=== PATIENT | female | born 1940 | race Caucasian/White ===

== ENCOUNTER 2022-02-26 12:13 | Inpatient (IN) | payer MEDICARE, BC ==
[~2022-02-26] VITALS: Ht 165.1 cm; Wt 47.6 kg
--- NOTE | 2022-02-26 12:20 | NUR ---
BIB [facility] from [facility] for agitation, medical clearance and possible admission to MHU. Pt to room 3 via EMT ximena. No report was received from sending facility, per EMT report facility staff stated pt has been agitated and yelling out loud.
[2022-02-26] MEDS ORDERED: diphenhydrAMINE 50 MG/1 ML VIAL IM ONE (12:30)
[2022-02-26] MEDS ORDERED: HALOPERIDOL LACTATE 5 MG/1 ML VIAL IM ONE (12:30)
[2022-02-26 12:38] LABS: HEMATOCRIT 34.5 % (31.2-41.9); MEAN CORPUSCULAR HEMOGLOBIN 29.8 uug (24.7-32.8); MEAN CORPUSCULAR VOLUME 89.6 fL (75.5-95.3); PLATELET COUNT (AUTO) 278 K/uL (179-408)
[2022-02-26 12:54] LABS: ETHANOL < 3 MG/DL (0-0)
[2022-02-26 12:57] LABS: ACETAMINOPHEN < 2.0 ug/mL (10-30)
[2022-02-26 13:02] LABS: CARBON DIOXIDE 30 mmol/L (21-32); CHLORIDE 102 mmol/L (98-107); GLUCOSE 104 mg/dL (74-106); POTASSIUM 4.8 mmol/L (3.5-5.1); UREA NITROGEN, BLOOD 13 mg/dL (7-18)
[2022-02-26 13:08] LABS: ALANINE AMINOTRANSFERASE 14 U/L (14-59); ALKALINE PHOSPHATASE 77 U/L (50-136); ASPARTATE AMINOTRANSFERASE 22 U/L (15-37); BILIRUBIN,DIRECT < 0.1 mg/dL (0.0-0.2); BILIRUBIN,TOTAL 0.2 mg/dL (0.2-1.0); TOTAL PROTEIN, SERUM 6.5 g/dL (6.4-8.2)
[2022-02-26 13:13] LABS: *BILIRUBIN,URIN NEGATIVE (NEGATIVE); *BLOOD, URINE NEGATIVE (NEGATIVE); *CLARITY,URINE CLEAR (CLEAR); *COLOR,URINE YELLOW (YELLOW); *KETONES,URINE NEGATIVE (NEGATIVE); *UROBILINOGEN,URINE 0.2 E.U./dl (NORMAL); LEUKOCYTE ESTERASE ,URINE 1+ (NEGATIVE); NITRITE, URINE NEGATIVE (NEGATIVE); UGLUCOSE NEGATIVE (NEGATIVE)
[2022-02-26 13:48] LABS: *AMPHETAMINE, URINE NEGATIVE (NEGATIVE); *CANNABINOID, URINE POSITIVE (NEGATIVE); *COCCAINE, URINE NEGATIVE (NEGATIVE); *OPIATE, URINE NEGATIVE (NEGATIVE); *PHENCYCLIDINE SCREEN,URINE NEGATIVE (NEGATIVE)
[2022-02-26] MEDS ORDERED: CEphaleXIN 500 MG CAPSULE PO ONE (14:30)
--- NOTE | 2022-02-26 15:00 | NUR ---
Pt resting in [facility] and reading a newspaper with NAD noted at this time.
--- NOTE | 2022-02-26 15:30 | NUR ---
Dung Betancourt, DIRECTOR OF ACQUISITION MARKETING at bedside.
[2022-02-26] MEDS ORDERED: CEphaleXIN 500 MG CAPSULE ONE (15:43)
--- NOTE | 2022-02-26 16:00 | NUR ---
SBAR report given to LENIN Araujo in [place].
--- NOTE | 2022-02-26 16:40 | NUR ---
Pt trans to MHU, NAD noted.
[2022-02-26] MEDS ORDERED: MELA5TAB MT (16:47)
[2022-02-26] MEDS ORDERED: BENA10TA74 MT (16:47)
[2022-02-26] MEDS ORDERED: ALEN10TA26 MT (16:47)
[2022-02-26] MEDS ORDERED: SERT-439 MT (16:47)
[2022-02-26] MEDS ORDERED: BISA-79 MT (16:47)
[2022-02-26] MEDS ORDERED: AMLO-212 MT (16:47)
[2022-02-26] MEDS ORDERED: POLY17PO4 MT (16:47)
[2022-02-26] MEDS ORDERED: CHOL200059 MT (16:47)
[2022-02-26] MEDS ORDERED: MEMA5TAB42 MT (16:47)
[2022-02-26] MEDS ORDERED: TRAZ-252 MT (16:47)
[2022-02-26] MEDS ORDERED: GABA-532 PO (16:47)
[2022-02-26] MEDS ORDERED: ATORVASTATIN PO (16:47)
[2022-02-26] MEDS ORDERED: BISA10SU61 RC (16:47)
[2022-02-26 17:00] VITALS: BP 104/50
[2022-02-26] MEDS ORDERED: ZOLPIDEM 5 MG TABLET PO PRN (17:30)
[2022-02-26] MEDS ORDERED: MAG HYDROX/AL HYDROX/SIMETH 30 ML LIQUID UDC PO PRN (17:30)
[2022-02-26] MEDS ORDERED: MAGNESIUM HYDROXIDE 30 ML LIQUID UDC PO PRN (17:30)
--- NOTE | 2022-02-26 18:24 | NUR ---
Intake called to changed psychiatrist from Dr. Luque to Dr. Chi x 3 times
--- NOTE | 2022-02-26 18:29 | NUR ---
Patient present to Emergency Department via EMS from [facility]. Patient was transferred for treatment due to noncompliance, persistent agitation, and confusion. Patient is oriented to self, confused, demonstrates disorganized thought process, impaired judgement, and poor insight and impulse control. Symmetrical and nonlabored breathing noted. Patient complains of frequent urinary urges. No complaints of pain at this time. Safety measures in place.
[2022-02-26 18:46] LABS: BACTERIA,URINE FEW /HPF (NONE SEEN); RBC,URINE 0-3 /HPF (0-3); SQUAMOUS EPITHELIAL CELL,UR NONE SEEN /HPF (NONE SEEN)
[2022-02-26 18:47] LABS: URINE AMORPHOUS PHOSPHATES MODERATE /HPF
[2022-02-26] MEDS ORDERED: OLANZAPINE 10 MG VIAL IM ONE (19:30)
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
[2022-02-26 19:56] VITALS: BP 107/51
--- NOTE | 2022-02-26 21:01 | NUR ---
GPS: Pt.is calm and cooperative at this time. No longer yelling/agitated and verbally abusive. Requesting to have a sleeping pill to help her sleep. Ambien 5mg given PO. Safe environment provided. Bed alarm on for safety. Ate some snacks prior to getting in bed.
--- NOTE | 2022-02-26 21:28 | NUR ---
GPS: Gabrielle RUVALCABA was notified to have med.recon done.
--- NOTE | 2022-02-27 06:21 | NUR ---
GPS: Pt.slept 5.45 last night. Had episode of shouting profanities earlier during incontinence care. Approached by staff in a calm manner to gain cooperation. No striking-out behavior noted. Fall precautions observed. Will continue to monitor.
[2022-02-27 07:43] VITALS: BP 96/60
[2022-02-27 08:00] VITALS: BP 109/66
[2022-02-27] MEDS: CEphaleXIN 500 MG CAPSULE PO SCH ×3 (09:26→21:42)
[2022-02-27] MEDS: LORAZEPAM 1 MG TABLET PO PRN ×3 (09:34→20:19)
--- NOTE | 2022-02-27 09:35 | NUR ---
patient is anxious, screaming loud abusive behavior noted toward staff. ativan 1 mg po prn given for out of control behavior. assisted in gerichair near the nursing station for safety. continue plan of care.
[2022-02-27 10:13] LABS: POTASSIUM 4.8 mmol/L (3.5-5.1)
--- NOTE | 2022-02-27 10:35 | NUR ---
patient is calm now. prn for anxiety effective.
[2022-02-27] MEDS ORDERED: BISACODYL 10 MG SUPP.RECT RC PRN (11:45)
[2022-02-27] MEDS ORDERED: LATA2.5D15 EACHEYE (12:09)
[2022-02-27] MEDS ORDERED: DONE5TAB34 PO (12:17)
[2022-02-27 16:31] VITALS: BP 137/58
--- NOTE | 2022-02-27 18:36 | NUR ---
Remain uncooperative and hyper verbal toward staff. assisted with adl's. continue plan of care..
[2022-02-27 20:00] VITALS: BP 104/52
[2022-02-27] MEDS: LATANOPROST OPHT DROP 2.5 ML BOTTLE OP SCH (20:12)
[2022-02-27] MEDS ORDERED: GABAPENTIN 100 MG CAPSULE PO SCH (21:00)
[2022-02-27] MEDS ORDERED: OLANZAPINE ZYDIS 5 MG TAB.RAPDIS PO SCH ×2 (21:00)
--- NOTE | 2022-02-27 22:00 | NUR ---
RECEIVED PATIENT IN THE HALLWAY SITTIN IN A MENDEL CHAIR. SHE WAS NOTED AWAKE A/O X 2. SHE WAS NOTED HYPERVERBAL AND RESTLESS BUT SHE IS SOMEWHAT REDIRECTABLE. PATIENT STATED, "I DON'T WANT TO BE HERE, THIS IS A HORRIBLE PLACE. I DON'T WANT TO GO TO [place] EITHER". NO AGGRESSIVE OR COMBATIVE BX NOTED AT THIS TIME. PATIENT WAS GIVEN ATIVAN 1MG PO PRN FOR AGITATION. SHE WAS ALSO COMPLIANT WITH ALL HER QHS MEDICATION REGIMENT WELL HER KEFLEX FOR UTI. PATIENT IS REASSURED FOR HER SAFETY. SAFETY AND FALL PRECAUTIONS ARE IN PLACE. SHE WAS GIVEN PO FLUIDS AND SNACKS. ALL HER NEEDS WERE MET (ADLs RESTROOM ETC.) WILL CONTINUE TO MONITOR,
[2022-02-28] MEDS: TEMAZEPAM 7.5 MG CAPSULE PO PRN ×2 (01:19→22:45)
[2022-02-28] MEDS: CEphaleXIN 500 MG CAPSULE PO SCH ×3 (06:39→21:07)
[2022-02-28 08:21] VITALS: BP 110/54
[2022-02-28] MEDS: GLUCERNA SHAKE 237 ML CAN PO SCH (08:21)
[2022-02-28] MEDS: MIRALAX 17 GM POWD.PACK NG SCH (08:21)
[2022-02-28 16:10] VITALS: BP 100/49
[2022-02-28] MEDS: OLANZAPINE ZYDIS 5 MG TAB.RAPDIS PO SCH ×2 (17:06→20:56)
[2022-02-28 19:55] VITALS: BP 132/50
--- NOTE | 2022-02-28 20:57 | NUR ---
Held BID scheduled 2100 medication d/t registry nurse given at 1700. Medication was previously ordered for 0900 and 1700, but now scheduled for 0900 and 2100 starting 02/28/22. Called [facility] to confirm orders. New frequency is x1 2.5mg tablet at 0900 and 2100 hours.
[2022-02-28] MEDS: GABAPENTIN 300 MG CAPSULE PO SCH (21:07)
[2022-02-28] MEDS: LATANOPROST OPHT DROP 2.5 ML BOTTLE OP SCH (21:08)
[2022-02-28] MEDS: LORAZEPAM 1 MG TABLET PO PRN (22:45)
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
[2022-03-01] MEDS: CEphaleXIN 500 MG CAPSULE PO SCH ×3 (06:20→20:22)
[2022-03-01] MEDS: OLANZAPINE ZYDIS 5 MG TAB.RAPDIS PO SCH (08:47)
[2022-03-01] MEDS: MIRALAX 17 GM POWD.PACK NG SCH (08:47)
[2022-03-01] MEDS: GLUCERNA SHAKE 237 ML CAN PO SCH (08:48)
[2022-03-01 09:02] VITALS: BP 104/60
--- NOTE | 2022-03-01 10:36 | NUR ---
JONY Initial Discharge Note: Pt currently resides at [facility] [address] [address] ([phone]). JONY spoke with Vivienne from [facility] regarding pt's return upon discharge. JONY will contact pt's , Bassam ([phone]) to discuss pt's discharge plan. JONY will continue to work with pt, family and MD to ensure a safe and proper discharge plan.
[2022-03-01] MEDS: DIVALPROEX SPRINKLE 125 MG CAP.SPRINK PO SCH ×2 (12:15→20:22)
--- NOTE | 2022-03-01 14:11 | NUR ---
Clinical SW Note: SW spoke with pt's psychologist, Dr. Small ([phone]). SW stated to Dr. Small that this senior technical writer will contact him prior to pt's discharge to schedule a follow-up appt for the pt's continuation of care. Dr. Small was grateful.
--- NOTE | 2022-03-01 14:55 | NUR ---
GPS: Nursing Notes: Thought Disorder: Patient is awake and responding to her name, impaired judgment, A/Ox1, poor insight, gets easily irritable when redirected, poor anger management, refusing to participate in therapeutic groups, refusing to eat her lunch, episodes of talking incoherently, loud and pressured speech at times, resistant with nursing care, unable to formulate a viable plan for self care, continue to monitor for safety, continue with treatment plan.
--- NOTE | 2022-03-01 15:24 | NUR ---
Firearms Report: Textile Engineer completed and submitted a [employer] firearms report for 5150 grave disability certifications. A copy of report has been placed in patient chart.
--- NOTE | 2022-03-01 15:54 | NUR ---
JONY Family contact: JONY contacted pt's , Bassam ([phone]) and it appears the number is invalid. JONY will continue to follow-up with Brooks for updated contact information.
[2022-03-01 16:11] VITALS: BP 99/64
[2022-03-01] MEDS: LORAZEPAM 1 MG TABLET PO PRN ×2 (16:27→20:22)
[2022-03-01 19:36] VITALS: BP 104/59
[2022-03-01] MEDS: GABAPENTIN 300 MG CAPSULE PO SCH (20:21)
[2022-03-01] MEDS ORDERED: OLANZAPINE ZYDIS 5 MG TAB.RAPDIS PO SCH (21:00)
[2022-03-01] MEDS: LATANOPROST OPHT DROP 2.5 ML BOTTLE OP SCH (21:48)
[2022-03-01] MEDS: ACETAMINOPHEN 325 MG TABLET PO PRN (22:26)
[2022-03-01] MEDS: TEMAZEPAM 7.5 MG CAPSULE PO PRN (22:26)
[2022-03-02] MEDS: CEphaleXIN 500 MG CAPSULE PO SCH ×3 (06:26→21:09)
[2022-03-02 07:45] VITALS: BP 113/65
[2022-03-02] MEDS: MIRALAX 17 GM POWD.PACK NG SCH (08:49)
[2022-03-02] MEDS: DIVALPROEX SPRINKLE 125 MG CAP.SPRINK PO SCH ×2 (08:49→21:09)
[2022-03-02] MEDS: GLUCERNA SHAKE 237 ML CAN PO SCH (08:50)
[2022-03-02] MEDS: LORAZEPAM 1 MG TABLET PO PRN ×2 (12:25→20:58)
[2022-03-02 15:08] VITALS: BP 113/61
--- NOTE | 2022-03-02 16:07 | NUR ---
GPS: Nursing Notes: Thought Disorder: Patient is awake and responding to her name, isolative and withdrawn in her room, poor anger management, depressed mood and anger affect, gets easily irritable when redirected, assisted with ADL's, but resistant with nursing care, loud and pressured speech at times, redirected during shift, unable to formulate a viable plan for self care, continue to monitor for safety, continue with treatment plan.
[2022-03-02 19:38] VITALS: BP 116/56
[2022-03-02] MEDS: ATORVASTATIN 10 MG TABLET PO SCH ×2 (20:57→21:09)
[2022-03-02] MEDS: LATANOPROST OPHT DROP 2.5 ML BOTTLE OP SCH (21:00)
[2022-03-02] MEDS: GABAPENTIN 300 MG CAPSULE PO SCH (21:08)
[2022-03-02] MEDS: OLANZAPINE ZYDIS 5 MG TAB.RAPDIS PO SCH (21:09)
[2022-03-02] MEDS: TEMAZEPAM 7.5 MG CAPSULE PO PRN (21:20)
[2022-03-03] MEDS: CEphaleXIN 500 MG CAPSULE PO SCH ×3 (06:13→21:37)
[2022-03-03 07:30] VITALS: BP 96/72
[2022-03-03] MEDS: GLUCERNA SHAKE 237 ML CAN PO SCH (09:00)
[2022-03-03] MEDS: DIVALPROEX SPRINKLE 125 MG CAP.SPRINK PO SCH ×3 (09:02→17:20)
[2022-03-03] MEDS: MIRALAX 17 GM POWD.PACK NG SCH (09:02)
[2022-03-03] MEDS: LORAZEPAM 1 MG TABLET PO PRN ×3 (09:04→23:30)
[2022-03-03 16:00] VITALS: BP 125/76
--- NOTE | 2022-03-03 16:37 | NUR ---
Patient had court hearing today, pole peeler gave 14 Day hold probable cause for GD and DTS.
[2022-03-03 20:27] VITALS: BP 127/87
--- NOTE | 2022-03-03 20:30 | NUR ---
RECEIVED PATIENT IN THE DAY ROOM SITTING IN A MENDEL CHAIR READING SOME MAGAZINES. SHE IS NOTED A/O X 2 ABLE TO VERBALIZED HER FEELINGS. SHE IS CALM AND PLEASANT UPON APPROACHED. SHE IS EXPRESSING THAT SHE WANTS TO GO BACK TO [place] SHE FEELS SHE IS BETTER THERE THAN HERE. SHE STATED, "I HAVE TO LEAVE THIS PLACE BY TOMORROW. I DON'T LIKE [place] BUT [place] IS BETTER THAN HERE, BECAUSE I HAVE A TV IN MY ROOM AND THE FOOD IS SERVED WITH REAL PLATES NOT FAKE". PATIENT NOTED WITH POOR INSIGHT AND JUDGMENT TO THE REASON FOR HER ADMISSION TO MHU. SHE WAS GIVEN PO FLUIDS AND SNACKS. PT IS REASSURED FOR HER SAFETY. SAFETY AND FALL PRECAUTIONS ARE IN PLACE. V/S STABLE. WILL CONTINUE TO MONITOR.
[2022-03-03] MEDS: LATANOPROST OPHT DROP 2.5 ML BOTTLE OP SCH (21:00)
[2022-03-03] MEDS: GABAPENTIN 300 MG CAPSULE PO SCH (21:25)
[2022-03-03] MEDS: OLANZAPINE ZYDIS 5 MG TAB.RAPDIS PO SCH (21:25)
[2022-03-03] MEDS: ATORVASTATIN 10 MG TABLET PO SCH (21:26)
[2022-03-03] MEDS: TEMAZEPAM 7.5 MG CAPSULE PO PRN (22:03)
--- NOTE | 2022-03-03 23:30 | NUR ---
THE BED ALARM WAS HEARD. THIS LAST CHALKER ENTERED PATIENT'S ROOM. PATIENT WAS NOTED UPSET. SHE STATED, "WHAT IS THAT NOISE. I HATE THIS PLACE. I NEED TO FO TO THE BATHROOM BUT THIS PLACE IS HORRIBLE". PATIENT WAS TOLD THAT THE BED ALARM IS FOR HER SAFETY SHE IS UNSTEADY ON HER FEET. HOWEVER, SHE CONTINUE YELLING. "I WANT TO GET OUT OF HERE SOON. I RATHER GO TO [place] THAN HERE. WHAT KIND OF PLACE IS THIS WITH THAT NOISE". SHE WAS HELPED TO THE RESTROOM AND BACK TO BED. ATIVAB 1MG PO PRN WAS GIVEN FOR AGITATION. WILL CONTINUE TO MONITOR
--- NOTE | 2022-03-04 00:30 | NUR ---
PATIENT NOTED SLEEPING COMFORTABLY IN HER BED. WILL CONTINUE TO MONITOR FOR LABILE BEHAVIOR.
[2022-03-04] MEDS: CEphaleXIN 500 MG CAPSULE PO SCH (06:43)
[2022-03-04 07:30] VITALS: BP 108/58
[2022-03-04] MEDS: DIVALPROEX SPRINKLE 125 MG CAP.SPRINK PO SCH ×3 (09:11→17:46)
[2022-03-04] MEDS: MIRALAX 17 GM POWD.PACK NG SCH (09:12)
[2022-03-04] MEDS: GLUCERNA SHAKE 237 ML CAN PO SCH (09:12)
[2022-03-04] MEDS: ENSURE ENLIVE (VAN) 240 ML LIQUID PO SCH ×3 (11:12→17:46)
[2022-03-04 16:00] VITALS: BP 100/54
--- NOTE | 2022-03-04 16:47 | NUR ---
SHIFT NOTE: GPS: NURSING NOTE: THOUGHT DISORDER RECEIVED PT ALERT AND ORIENTED X2 PT RESPONDS WHEN MEDICATION IS GIVEN LYING IN BED NO SIGNS OF DISTRESS NOTED. PT DENIES PAIN AND ABLE TO ANSWER APPROPRIATELY WHEN ASKED. WILL CONTINUE TO MONITOR FOR SAFETY AND ENDORSE TO PM NURSE.
[2022-03-04 20:48] VITALS: BP 100/54
[2022-03-04] MEDS: LATANOPROST OPHT DROP 2.5 ML BOTTLE OP SCH (21:00)
[2022-03-04] MEDS: GABAPENTIN 300 MG CAPSULE PO SCH (21:59)
[2022-03-04] MEDS: ATORVASTATIN 10 MG TABLET PO SCH (21:59)
[2022-03-04] MEDS: OLANZAPINE ZYDIS 5 MG TAB.RAPDIS PO SCH (21:59)
[2022-03-05 07:30] VITALS: BP 100/58
[2022-03-05] MEDS: DIVALPROEX SPRINKLE 125 MG CAP.SPRINK PO SCH ×3 (09:03→16:47)
[2022-03-05] MEDS: MIRALAX 17 GM POWD.PACK NG SCH (09:03)
[2022-03-05] MEDS: ENSURE ENLIVE (VAN) 240 ML LIQUID PO SCH ×3 (09:03→16:47)
--- NOTE | 2022-03-05 15:52 | NUR ---
Patient was found on the floor around 15:00, and stated that she slid from bed to the floor. Vital signs within normal limits, skin intact. Incident report completed, her Bassam [phone] was notified, and Hand Stamper was informed. Fall and safety precautions implemented.
[2022-03-05 16:00] VITALS: BP 98/53
--- NOTE | 2022-03-05 16:08 | NUR ---
JONY Family Contact: JONY spoke with pt's /DPOA, Bassam ([phone]) regarding pt's current status and discharge plan. JONY stated pt does not have an anticipated discharge date yet to return to [facility]. Bassam was grateful for the update and stated he will visit the pt during evening visitation.
--- NOTE | 2022-03-05 16:49 | NUR ---
No further orders from Word Processor related to Fall Incident Report.
--- NOTE | 2022-03-05 17:59 | NUR ---
SHIFT NOTE: RECEIVED REPORT FROM AM NURSE ROGER. ENTERED PT ROOM SHE IS ASLEEP NO SIGNS OF DISTRESS NOTED. BUT AT 1520 CHECKING ON PATIENT IN ROOM 145CA Addendum: 03/05/22 at 1821 by [facility] INPATIENT RN1 RN THE CA CAME INTO THE ROOM TOLD NURSE PATIENT ON THE FLOOR NO SIGNS OF DISTRESS NOTED. PATIENT STATES" PUT LIGHT ON NO ONE ANSWER TRYING TO GO TO THE BATHROOM AND SLID DOWN ON THE FLOOR NO SIGNS OF DISTRESS NOTED. ASSESSED PT BODY NO BRUISE OR CUTS. TOOK PATIENT TO TOILET WHERE SHE WAS CLEANED AND PUT ON CLEAN DRY GOWN PANTS ALONG WITH NEW SOCKS PATIENT LINEN CHANGED AND FIELD MERCHANDISER,DR MO, ALONG PATIENT WHO CAME TO VISIT PATIENT. PT TOOK MEDICATION ORDERED. DURING PATIENT CRYING WANTING TO . TALKED WITH PATIENT ABOUT SUICIDAL SPEECH AFTERWARDS PATIENT PUT IN GERIATRIC CHAIR AND MOVED CLOSE TO NURSING STATION. WILL CONTINUE TO MONITOR SAFETY AND FALLS. DR. MO CALLED STATES" NO NEW ORDERS."
[2022-03-05 20:14] VITALS: BP 114/62
[2022-03-05] MEDS: GABAPENTIN 300 MG CAPSULE PO SCH (20:29)
[2022-03-05] MEDS: ATORVASTATIN 10 MG TABLET PO SCH (20:29)
[2022-03-05] MEDS: OLANZAPINE ZYDIS 5 MG TAB.RAPDIS PO SCH (20:30)
[2022-03-05] MEDS: LATANOPROST OPHT DROP 2.5 ML BOTTLE OP SCH (20:31)
[2022-03-05] MEDS: TEMAZEPAM 7.5 MG CAPSULE PO PRN (21:30)
[2022-03-06] MEDS: LORAZEPAM 1 MG TABLET PO PRN ×3 (00:12→13:25)
--- NOTE | 2022-03-06 00:12 | NUR ---
patient c/o anxiety. ativan 1 mg po prn given for anxiety.
--- NOTE | 2022-03-06 01:12 | NUR ---
GPS: Patient is calm and resting in bed quietly. prn for anxiety effective.
--- NOTE | 2022-03-06 06:16 | NUR ---
GPS: patient remained angry toward staff. showered this morning. compliant with meds. assisted with adl's. patient ambulate with assist. slept 4.45 hrs after Restoril po prn given. resting in bed comfortably. continue plan of care.
[2022-03-06 08:01] VITALS: BP 122/82
[2022-03-06] MEDS: DIVALPROEX SPRINKLE 125 MG CAP.SPRINK PO SCH ×3 (08:40→16:19)
[2022-03-06] MEDS: MIRALAX 17 GM POWD.PACK NG SCH (08:40)
[2022-03-06] MEDS: ENSURE ENLIVE (VAN) 240 ML LIQUID PO SCH ×3 (08:45→16:19)
--- NOTE | 2022-03-06 13:34 | NUR ---
GPS: Nursing Notes: Thought Disorder: Patient is awake and responding to her name, impaired judgment, gets easily irritable when redirected, poor anger management, resistant with nursing care, disoriented, poor insight, unable to formulate a viable plan for self care, using profanities toward staff at times, redirected and reoriented during shift, unkempt appearance, poor grooming, continue to monitor for safety, depressed mood and angry affect, continue with treatment plan.
[2022-03-06 16:21] VITALS: BP 94/52
[2022-03-06 20:00] VITALS: BP 104/64
[2022-03-06] MEDS: GABAPENTIN 300 MG CAPSULE PO SCH (20:33)
[2022-03-06] MEDS: ATORVASTATIN 10 MG TABLET PO SCH (20:33)
[2022-03-06] MEDS: OLANZAPINE ZYDIS 5 MG TAB.RAPDIS PO SCH (20:33)
[2022-03-06] MEDS: LATANOPROST OPHT DROP 2.5 ML BOTTLE OP SCH (21:00)
--- NOTE | 2022-03-06 21:00 | NUR ---
RECEIVED PATIENT IN HER ROOM IN BED. SHE IS NOTED SLEEPING BUT EASILY AROUSABLE. SHE IS A/O X 1 TO 2 BUT SHE IS FORGETFUL TIMES. SHE IS CALM AND PLEASANT UPON APPROACHED. SHE STATED, "I AM FEELING OK I GUESS, BUT I AM HUNGRY AND I NEED ANOTHER PILLOW FOR MY HEAD AND ANOTHER BLANKET". PATIENT IS REASSURED FOR HER SAFETY. SAFETY AND FALL PRECAUTIONS ARE IN PLACE. HER V/S ARE STABLE. SHE WAS GIVEN PO FLUIDS AND SNACKS. ALL HER NEEDS ARE MET. WILL CONTINUE TO MONITOR.
[2022-03-07 07:53] VITALS: BP 114/63
[2022-03-07] MEDS: DIVALPROEX SPRINKLE 125 MG CAP.SPRINK PO SCH ×3 (08:34→16:19)
[2022-03-07] MEDS: MIRALAX 17 GM POWD.PACK NG SCH (08:34)
[2022-03-07] MEDS: ENSURE ENLIVE (VAN) 240 ML LIQUID PO SCH ×3 (08:35→16:20)
--- NOTE | 2022-03-07 11:47 | NUR ---
GPS: Nursing Notes: Thought Disorder: Patient is awake and responding to her name, poor anger management, resistant with nursing care, gets easily irritable when redirected, verbal abusive at times, A/Ox1-2, impaired judgment, poor insight, unable to formulate a viable plan for self care, isolative and withdrawn this AM, low energy level, continue to monitor for safety, continue with treatment plan.
[2022-03-07 16:35] VITALS: BP 108/73
[2022-03-07 19:55] VITALS: BP 132/81
[2022-03-07] MEDS: LORAZEPAM 1 MG TABLET PO PRN (19:55)
[2022-03-07] MEDS: OLANZAPINE ZYDIS 5 MG TAB.RAPDIS PO SCH (20:29)
[2022-03-07] MEDS: ATORVASTATIN 10 MG TABLET PO SCH (20:29)
[2022-03-07] MEDS: GABAPENTIN 300 MG CAPSULE PO SCH (20:29)
--- NOTE | 2022-03-07 20:30 | NUR ---
RECEIVED PATIENT IN HER ROOM IN BED. SHE IS NOTED AWAKE, A/O X 2. SHE IS CRYING ANXIOUS AND FEELING HOPELESS UPON APPROACHED. SHE STATED, "WHEN AM I LEAVING THIS PLACE? I AM USELESS, JUST SITTING HERE DOING NOTHING. I AM TIRED. I DON'T WANT TO GO TO [place], I HATE THAT PLACE". PATIENT WAS REALITY ORIENTED, SHE IS REASSURED FOR HER SAFETY. SHE WAS TOLD IF SHE WANTED TO GO OUTSIDE HER ROOM AND WATCH TV. SHE STATED, "YES". SHE WAS ALSO OFFERED AN ATIVAN 1MG AND SHE SAY "YES". PATIENT WAS THEN TAKEN TO THE BATHROOM THEN TO DAY ROOM THEN ATIVAN 1MG PO PRN WAS GIVEN. SAFETY AND FALL PRECAUTIONS ARE IN PLACE. HER V/S ARE STABLE. SHE WAS GIVEN PO FLUIDS AND SNACKS. ALL HER NEEDS ARE MET. WILL CONTINUE TO MONITOR.
[2022-03-07] MEDS: LATANOPROST OPHT DROP 2.5 ML BOTTLE OP SCH (21:46)
[2022-03-08] MEDS: TEMAZEPAM 7.5 MG CAPSULE PO PRN ×2 (00:58→20:44)
[2022-03-08 08:01] VITALS: BP 99/59
[2022-03-08] MEDS: MIRALAX 17 GM POWD.PACK NG SCH (08:23)
[2022-03-08] MEDS: DIVALPROEX SPRINKLE 125 MG CAP.SPRINK PO SCH ×2 (08:23→12:49)
[2022-03-08] MEDS: ENSURE ENLIVE (VAN) 240 ML LIQUID PO SCH ×3 (08:24→17:13)
[2022-03-08] MEDS: LORAZEPAM 1 MG TABLET PO PRN ×2 (08:38→22:54)
[2022-03-08] MEDS: OLANZAPINE 2.5 MG TABLET PO SCH ×2 (12:49→17:13)
[2022-03-08 16:05] VITALS: BP 117/72
[2022-03-08] MEDS: DIVALPROEX 250 MG TABLET.DR PO SCH (17:13)
--- NOTE | 2022-03-08 17:43 | NUR ---
GPS: Nursing Notes: Thought Disorder: Patient is awake and responding to her name, gets easily irritable when redirected, labile, unpredictable behavior, impaired judgment, poor insight, disoriented, unable to formulate a viable plan for self care, resistant with nursing care, unkempt appearance, continue with treatment plan.
[2022-03-08 19:42] VITALS: BP 112/66
[2022-03-08] MEDS: LATANOPROST OPHT DROP 2.5 ML BOTTLE OP SCH (20:42)
[2022-03-08] MEDS: GABAPENTIN 300 MG CAPSULE PO SCH (20:43)
[2022-03-08] MEDS: OLANZAPINE ZYDIS 5 MG TAB.RAPDIS PO SCH (20:44)
[2022-03-08] MEDS: ATORVASTATIN 10 MG TABLET PO SCH (20:44)
--- NOTE | 2022-03-09 05:49 | NUR ---
GPS NOTES: Patient received in bed, A&0x3, patient is anxious, verbalizing she hasn't move her BM for 3 days. Re-assure patient, patient assisted to restroom, she is unsteady and weak as she is thin and failing to thrive. MOM given as per her request. Effective. Patient had small BM, w/c she is relieved. Ativan also given d/t anxiety. Snacks and fluids provided. Only drinks the juice provided. She is med compliant. Complaint with care. Prn temazepam given. effective. slept well during shift. All safety precautions observed.
[2022-03-09 07:54] LABS: HEMATOCRIT 35.1 % (31.2-41.9); MEAN CORPUSCULAR HEMOGLOBIN 29.3 uug (24.7-32.8); MEAN CORPUSCULAR VOLUME 89.3 fL (75.5-95.3); PLATELET COUNT (AUTO) 396 K/uL (179-408)
[2022-03-09 08:00] VITALS: BP 102/66
[2022-03-09 08:08] LABS: BILIRUBIN,TOTAL 0.2 mg/dL (0.2-1.0); CREATININE 0.8 mg/dL (0.6-1.3); POTASSIUM 4.4 mmol/L (3.5-5.1)
[2022-03-09] MEDS: DIVALPROEX SPRINKLE 125 MG CAP.SPRINK PO SCH ×2 (09:43→12:58)
[2022-03-09] MEDS: OLANZAPINE 2.5 MG TABLET PO SCH ×3 (09:43→17:00)
[2022-03-09] MEDS: MIRALAX 17 GM POWD.PACK NG SCH (09:43)
[2022-03-09] MEDS: ENSURE ENLIVE (VAN) 240 ML LIQUID PO SCH ×3 (09:44→16:59)
[2022-03-09] MEDS: NUTRISOURCE FIBER 4 GM PACKET PO SCH (14:00)
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
[2022-03-09 16:01] VITALS: BP 100/54
[2022-03-09] MEDS: DIVALPROEX 250 MG TABLET.DR PO SCH (16:59)
[2022-03-09 19:54] VITALS: BP 106/62
[2022-03-09] MEDS: GABAPENTIN 300 MG CAPSULE PO SCH (20:50)
[2022-03-09] MEDS: LORAZEPAM 1 MG TABLET PO PRN (20:50)
[2022-03-09] MEDS: ATORVASTATIN 10 MG TABLET PO SCH (20:50)
[2022-03-09] MEDS: OLANZAPINE ZYDIS 5 MG TAB.RAPDIS PO SCH (20:50)
[2022-03-09] MEDS: LATANOPROST OPHT DROP 2.5 ML BOTTLE OP SCH (20:52)
[2022-03-09] MEDS: TEMAZEPAM 7.5 MG CAPSULE PO PRN (21:50)
[2022-03-10] MEDS: ACETAMINOPHEN 325 MG TABLET PO PRN (00:37)
[2022-03-10] MEDS: LORAZEPAM 1 MG TABLET PO PRN (00:37)
[2022-03-10 07:30] VITALS: BP 112/68
[2022-03-10] MEDS: DIVALPROEX SPRINKLE 125 MG CAP.SPRINK PO SCH ×2 (08:00→15:00)
[2022-03-10] MEDS: MIRALAX 17 GM POWD.PACK NG SCH ×2 (09:00→15:01)
[2022-03-10] MEDS: ENSURE ENLIVE (VAN) 240 ML LIQUID PO SCH ×3 (09:00→17:54)
[2022-03-10] MEDS: OLANZAPINE 2.5 MG TABLET PO SCH ×3 (09:00→17:49)
[2022-03-10] MEDS: NUTRISOURCE FIBER 4 GM PACKET PO SCH (09:00)
[2022-03-10 16:00] VITALS: BP 97/57
[2022-03-10] MEDS: DIVALPROEX 250 MG TABLET.DR PO SCH (17:49)
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
[2022-03-10] MEDS: OLANZAPINE ZYDIS 5 MG TAB.RAPDIS PO SCH (20:08)
[2022-03-10] MEDS: GABAPENTIN 300 MG CAPSULE PO SCH (20:08)
[2022-03-10] MEDS: ATORVASTATIN 10 MG TABLET PO SCH (20:08)
[2022-03-10 20:09] VITALS: BP 108/49
--- NOTE | 2022-03-10 20:30 | NUR ---
RECEIVED PATIENT IN THE DAY ROOM SITTING IN A MENDEL CHAIR. SHE IS NOTED A/O X 2. SHE IS NOTED IRRITABLE, "I DON'T UNDERSTAND WHY I AM STILL HERE IN THIS PLACE". PATIENT REQUIRES REALITY REDIRECTIONS AND REALITY ORIENTATION. PATIENT SAFETY AND FALL PRECAUTIONS ARE IN PLACE. HER V/S ARE STABLE. SHE WAS GIVEN PO FLUIDS AND SNACKS. ALL HER NEEDS ARE MET. WILL CONTINUE TO MONITOR.
[2022-03-10] MEDS: LATANOPROST OPHT DROP 2.5 ML BOTTLE OP SCH (20:39)
[2022-03-10] MEDS: TEMAZEPAM 7.5 MG CAPSULE PO PRN (21:28)
[2022-03-11] MEDS: LORAZEPAM 1 MG TABLET PO PRN (01:07)
--- NOTE | 2022-03-11 01:10 | NUR ---
PATIENT NOTED AWAKE. SHE STATED, "I CAN'T SLEEP. THIS BED IS HORRIBLE, DON'T YOU HAVE SOMETHING BETTER? I NEED SOMETHING FOR SLEEP". TEMAZEPAM 7.5MG PO PRN WAS GIVEN EARLIER. PATIENT GETS EASILY IRRITABLE. ATIVAN 1MG PO PRN WAS GIVEN. WILL CONTINUE TO MONITOR.
--- NOTE | 2022-03-11 06:17 | NUR ---
PATIENT SLEPT FOR APPROX 4HRS THROUGH THE NIGHT, SHE IS NOTED LABILE. WILL CONTINUE TO MONITOR.
[2022-03-11 07:30] VITALS: BP 100/58
[2022-03-11] MEDS: OLANZAPINE 2.5 MG TABLET PO SCH ×2 (08:40→17:26)
[2022-03-11] MEDS: MIRALAX 17 GM POWD.PACK PO SCH (08:40)
[2022-03-11] MEDS: DIVALPROEX SPRINKLE 125 MG CAP.SPRINK PO SCH ×2 (08:40→13:05)
[2022-03-11] MEDS: ENSURE ENLIVE (VAN) 240 ML LIQUID PO SCH ×3 (08:40→17:27)
[2022-03-11] MEDS: NUTRISOURCE FIBER 4 GM PACKET PO SCH (08:41)
--- NOTE | 2022-03-11 15:00 | NUR ---
Received patient awake laying in bed, depressed and blunt affect.Patient stays in her room and does not interact with peers or staff.Patient does not attend group activities.Patient has well kept appearance and is compliant with nursing care.Patient is not med compliant,Patient cheeking medication.
--- NOTE | 2022-03-11 15:02 | NUR ---
JONY Family/DPOA Contact: JONY spoke with pt's /DPOA, Bassam ([phone]) and informed Bassam that pt's anticipated discharge date is set for Tuesday the . Bassam was grateful for the good news. JONY stated this inspector automatic typewriter will follow-up again tomorrow to confirm.
[2022-03-11 16:00] VITALS: BP 135/72
[2022-03-11] MEDS: DIVALPROEX 250 MG TABLET.DR PO SCH (17:26)
[2022-03-11 20:04] VITALS: BP 126/65
[2022-03-11] MEDS: OLANZAPINE ZYDIS 5 MG TAB.RAPDIS PO SCH (20:12)
[2022-03-11] MEDS: GABAPENTIN 300 MG CAPSULE PO SCH (20:12)
[2022-03-11] MEDS: LATANOPROST OPHT DROP 2.5 ML BOTTLE OP SCH (20:12)
[2022-03-11] MEDS: ATORVASTATIN 10 MG TABLET PO SCH (20:12)
--- NOTE | 2022-03-11 20:30 | NUR ---
RECEIVED PATIENT IN THE DAY ROOM SITTING IN A MENDEL CHAIR. SHE IS NOTED A/O X 2. SHE IS NOTED ESILY IRRITABLE, SHE YELLS AT TIME. SHE IS ATTENTION SEEKER. SHE IS LABILE. SHE IS REASSURED FOR HER SAFETY. SAFETY AND FALL PRECAUTIONS ARE IN PLACE. WILL CONTINUE TO MONITOR. HER V/S ARE STABLE. SHE WAS GIVEN PO FLUIDS AND SNACKS. ALL HER NEEDS ARE MET. WILL CONTINUE TO MONITOR.
[2022-03-11] MEDS: TEMAZEPAM 7.5 MG CAPSULE PO PRN (22:56)
[2022-03-12 07:30] VITALS: BP 120/70
[2022-03-12] MEDS: OLANZAPINE 2.5 MG TABLET PO SCH ×2 (09:21→17:18)
[2022-03-12] MEDS: MIRALAX 17 GM POWD.PACK PO SCH (09:21)
[2022-03-12] MEDS: DIVALPROEX SPRINKLE 125 MG CAP.SPRINK PO SCH ×2 (09:21→12:41)
[2022-03-12] MEDS: ENSURE ENLIVE (VAN) 240 ML LIQUID PO SCH ×3 (09:22→17:19)
[2022-03-12] MEDS: NUTRISOURCE FIBER 4 GM PACKET PO SCH (09:22)
--- NOTE | 2022-03-12 14:07 | NUR ---
JONY Family Contact: SW spoke with pt's /DPOABassam ([phone]) regarding pt's current status and discharge plan. Bassam was grateful for the update.
--- NOTE | 2022-03-12 14:09 | NUR ---
Gps/Senior Data Mining Analyst- Patient remains in bed at this time, had been meds. compliant, adequate assist with meals , set up, encouraged fluids. Redirectable, safety reviewed, emphasized.
[2022-03-12 16:00] VITALS: BP 116/48
--- NOTE | 2022-03-12 16:00 | NUR ---
Gps/Turning Sander Operator- OOB to her justus-chair , stayed in the activity room during her dinner
--- NOTE | 2022-03-12 16:12 | NUR ---
JONY Family/DPOA Contact: JONY spoke with pt's /DPOA, Bassam ([phone]) and stated that this content writer spoke with [facility] [phone] transit and helped assist Bassam with beginning the transportation set up. Bassam stated he will call and continue finalizing the set up.
--- NOTE | 2022-03-12 16:19 | NUR ---
JONY Family Contact: JONY spoke with pt's /DPOA, Bassam ([phone]) regarding pt's discharge plan. Bassam stated he contacted [facility] provided by this SW per request. Bassam confirmed transportation is set for Tuesday the at 11AM.
[2022-03-12] MEDS: DIVALPROEX 250 MG TABLET.DR PO SCH (17:18)
[2022-03-12] MEDS: LORAZEPAM 1 MG TABLET PO PRN (20:30)
[2022-03-12] MEDS: GABAPENTIN 300 MG CAPSULE PO SCH (20:31)
[2022-03-12] MEDS: OLANZAPINE ZYDIS 5 MG TAB.RAPDIS PO SCH (20:31)
[2022-03-12] MEDS: ATORVASTATIN 10 MG TABLET PO SCH (20:32)
[2022-03-12] MEDS: LATANOPROST OPHT DROP 2.5 ML BOTTLE OP SCH (20:33)
[2022-03-12 20:58] VITALS: BP 106/61
--- NOTE | 2022-03-13 04:53 | NUR ---
Patient has been calm and medication compliant. Assistance provided with ADLs. The patient continues to have labile moments, but less angry and verbally abusive the previous shifts. Safety Stratiges are in place. No acute distress noted. Plan discharge is for Tuesday.
[2022-03-13 07:41] VITALS: BP 94/62
[2022-03-13] MEDS: MIRALAX 17 GM POWD.PACK PO SCH (08:38)
[2022-03-13] MEDS: DIVALPROEX SPRINKLE 125 MG CAP.SPRINK PO SCH ×2 (08:38→13:05)
[2022-03-13] MEDS: ENSURE ENLIVE (VAN) 240 ML LIQUID PO SCH ×3 (08:39→16:52)
[2022-03-13] MEDS: NUTRISOURCE FIBER 4 GM PACKET PO SCH (08:40)
[2022-03-13] MEDS: OLANZAPINE 2.5 MG TABLET PO SCH ×2 (08:40→16:51)
[2022-03-13 16:05] VITALS: BP 113/65
[2022-03-13] MEDS: DIVALPROEX 250 MG TABLET.DR PO SCH (16:51)
[2022-03-13 20:20] VITALS: BP 111/63
[2022-03-13] MEDS: ATORVASTATIN 10 MG TABLET PO SCH (20:22)
[2022-03-13] MEDS: GABAPENTIN 300 MG CAPSULE PO SCH (20:22)
[2022-03-13] MEDS: OLANZAPINE ZYDIS 5 MG TAB.RAPDIS PO SCH (20:22)
[2022-03-13] MEDS: LATANOPROST OPHT DROP 2.5 ML BOTTLE OP SCH (20:23)
[2022-03-13] MEDS: TEMAZEPAM 7.5 MG CAPSULE PO PRN (21:12)
[2022-03-13] MEDS: LORAZEPAM 1 MG TABLET PO PRN (23:23)
[2022-03-13] MEDS: ACETAMINOPHEN 325 MG TABLET PO PRN (23:23)
[2022-03-14 08:18] VITALS: BP 102/56
[2022-03-14] MEDS: MIRALAX 17 GM POWD.PACK PO SCH (08:40)
[2022-03-14] MEDS: DIVALPROEX SPRINKLE 125 MG CAP.SPRINK PO SCH ×2 (08:40→12:11)
[2022-03-14] MEDS: NUTRISOURCE FIBER 4 GM PACKET PO SCH (08:41)
[2022-03-14] MEDS: ENSURE ENLIVE (VAN) 240 ML LIQUID PO SCH ×3 (09:32→17:00)
[2022-03-14] MEDS: LORAZEPAM 1 MG TABLET PO PRN ×2 (11:39→20:14)
[2022-03-14] MEDS: OLANZAPINE 2.5 MG TABLET PO SCH ×2 (12:06→16:58)
--- NOTE | 2022-03-14 14:30 | NUR ---
Gp/Supervisor Boarding- Confused, disoriented, kept trying to get oob. safety reviewed. Kept patient in her justus-chair, by the Nurses station, noted patient intentionally sliding from her justus-chair couple of time. Ambulated to the bathroom twice,unsteady gait incontinent of soft mushy stools, diaper changed .
--- NOTE | 2022-03-14 15:52 | NUR ---
Gps/Pulp Beater Patient's Bassam was in to visit, accompanied by his resident assistant cna Reese. Informed of the discharge plan tomorrow, back to [facility], will be transported by [facility]ulance transport as arranged .Patient was also well informed of her dc. plan, but patient is very forgetful, easily gets confused.
[2022-03-14 16:11] VITALS: BP 119/68
[2022-03-14] MEDS: DIVALPROEX 250 MG TABLET.DR PO SCH (16:58)
[2022-03-14 19:47] VITALS: BP 116/60
[2022-03-14] MEDS: OLANZAPINE ZYDIS 5 MG TAB.RAPDIS PO SCH (20:14)
[2022-03-14] MEDS: ATORVASTATIN 10 MG TABLET PO SCH (20:15)
[2022-03-14] MEDS: LATANOPROST OPHT DROP 2.5 ML BOTTLE OP SCH (20:15)
[2022-03-14] MEDS: GABAPENTIN 300 MG CAPSULE PO SCH (20:15)
[2022-03-14] MEDS: ACETAMINOPHEN 325 MG TABLET PO PRN (20:15)
--- NOTE | 2022-03-15 01:35 | NUR ---
Patient was confused , anxious and argumentative last night. This patient is unsteady but believes that she can ambulate without assistance and tries to jump up out of the chair and bed impulsively. Fall precautions are in place. The patient is due to be discharged later today. Continuing to monitor labile moods , too reassure and reorient her as needed.
[2022-03-15 07:48] VITALS: BP 90/51
[2022-03-15] MEDS: OLANZAPINE 2.5 MG TABLET PO SCH (09:08)
[2022-03-15] MEDS: MIRALAX 17 GM POWD.PACK PO SCH (09:08)
[2022-03-15] MEDS: DIVALPROEX SPRINKLE 125 MG CAP.SPRINK PO SCH (09:08)
[2022-03-15] MEDS: ENSURE ENLIVE (VAN) 240 ML LIQUID PO SCH (09:10)
[2022-03-15] MEDS: NUTRISOURCE FIBER 4 GM PACKET PO SCH (09:11)
--- NOTE | 2022-03-15 09:42 | NUR ---
JONY Discharge Note: Pt will be discharged to [facility] located at [address] [address] ([phone]) via [facility] medical transit ([phone]) arranged by pts Bassam ([phone]) at 11AM. JONY spoke with admin coordinator, Anika and med techChavez at the facility who state they are ready to accept the patient today. Pt is aware and agreeable with discharge plan. Pts /DPOABassam ([phone]) is aware and agreeable with the discharge plan. Pt is alert and oriented x3, is unable to plan for self-care at this time. However, pt is willing to return to [facility] and accept care. Pt denies any suicidal or homicidal ideation. Pt will follow-up at the facility with Psychiatrist, Dr. Small ([phone]) and Direct Support Worker, Dr. Bennett. Pt presents with calm mood and congruent affect. PHARMACY: [facility] ([phone]).
--- NOTE | 2022-03-15 09:48 | NUR ---
JONY Final Discharge Note: Pt will be discharged to [facility] located at [address] [address] ([phone]) via [facility] medical transit ([phone]) arranged by pts Bassam ([phone]) at 11AM. JONY spoke with admin coordinator, Anika and med techChavez at the facility who state they are ready to accept the patient today. Pt is aware and agreeable with discharge plan. Pts /DPOABassam ([phone]) is aware and agreeable with the discharge plan. Pt is alert and oriented x3, is unable to plan for self-care at this time. However, pt is willing to return to [facility] and accept care. Pt denies any suicidal or homicidal ideation. Pt will follow-up at the facility with Psychiatrist, Dr. Small ([phone]) and Insurance Business Analyst, Dr. Bennett. Pt presents with calm mood and congruent affect. PHARMACY: [facility] ([phone]) [address] [id number].
--- NOTE | 2022-03-15 10:31 | NUR ---
JONY Final Discharge Note: Pt will be discharged to [facility] located at [address] [address] ([phone]) via [facility] medical transit ([phone]) arranged by pts Bassam ([phone]) at 11AM. JONY spoke with admin coordinator, Anika and med techChavez at the facility who state they are ready to accept the patient today. Pt is aware and agreeable with discharge plan. Pts /DPOABassam ([phone]) is aware and agreeable with the discharge plan. Pt is alert and oriented x3, is unable to plan for self-care at this time. However, pt is willing to return to [facility] and accept care. Pt denies any suicidal or homicidal ideation. Pt will follow-up at the facility with Psychiatrist, Dr. Small ([phone]) and Internal Medicine Physician Assistant, Dr. Bennett. Pt presents with calm mood and congruent affect. PHARMACY: [facility] ([phone]) [address] [address].
--- NOTE | 2022-03-15 12:16 | NUR ---
JONY Family/DPOA Contact: JONY spoke with pt's , Bassam ([phone]) and informed him that everything is in place for pt's discharge today by [facility] at 11AM and [facility] is aware and waiting for the pt. Bassam was grateful and agreeable. Bassam thanked this SW for all the help.
--- NOTE | 2022-03-15 12:39 | NUR ---
GPS: Nursing Notes: Discharge Notes: Patient is awake and responding to her name, cooperative with nursing care, compliant with her medications, needs assistance with nursing care, denies SI/HI, denies AH/VH, denies pain or discomfort, denies SOB. Patient is discharge to [facility] at [address] [place] [address] . Patient's /DPOA - Bassam was informed of discharge by social work administrator. Patient will follow up with Dr. Small (psychiatrist) and facility's senior specialist at the facility for aftercare. Per facility's staff request: Olya, customer care professional: Prescriptions were faxed to her at . facility needs to follow up with her psychiatrist and senior specialist as soon as possible.
== END 2022-03-15 12:00 | DRG 885 ==
LOC: ER 12:13 → GPS 14:30
PROVIDERS: ADMIT Psychiatry & Neurology Psychiatry; ATTEND Internal Medicine
DX: F25.0 Schizoaffective disorder, bipolar type (principal); N39.0 Urinary tract infection, site not specified; R45.851 Suicidal ideations; Z68.1 Body mass index [BMI] 19.9 or less, adult; F02.82 Dementia in other diseases classified elsewhere, unspecified severity, with psychotic disturbance; E44.1 Mild protein-calorie malnutrition; G30.9 Alzheimer's disease, unspecified; E78.5 Hyperlipidemia, unspecified; G89.29 Other chronic pain; R62.7 Adult failure to thrive; Z20.822 Contact with and (suspected) exposure to COVID-19; I10 Essential (primary) hypertension; B96.20 Unspecified Escherichia coli [E. coli] as the cause of diseases classified elsewhere; F32.A Depression, unspecified; M81.0 Age-related osteoporosis without current pathological fracture; F29 Unspecified psychosis not due to a substance or known physiological condition; M48.00 Spinal stenosis, site unspecified; F60.9 Personality disorder, unspecified
CPT/HCPCS: 36415; 70450; 80164; 85025; A4663; G0480; J2358; J3490